=== PATIENT | male | born 1985 | race Caucasian/White ===

== ENCOUNTER 2016-10-22 16:39 | Emergency (ER) | payer OTHER ==
[~2016-10-22] VITALS: Ht 180.3 cm; Wt 67.9 kg
[~2016-10-22 16:39] MED LIST: NOHOMEMEDS
[2016-10-22 20:19] VITALS: BP 127/85
[2016-10-23] MEDS ORDERED: ADVIL,NUPRIN,M200 MG PO (14:34)
== END 2016-10-22 20:37 | disposition home or self-care (01) ==
LOC: EME 16:39
DX: T18.128A Food in esophagus causing other injury, initial encounter (principal); F17.200 Nicotine dependence, unspecified, uncomplicated
CPT/HCPCS: 99281; 99284

== ENCOUNTER 2016-10-23 11:50 | Inpatient (IN) | payer BC ==
[~2016-10-23] VITALS: Ht 180.3 cm; Wt 67.9 kg
[2016-10-23 12:45] LABS: HEMATOCRIT 37.8 % (38.0-50.0); MCH 31.7 PG (29.0-34.0); MCHC 34.1 G/DL (30.0-36.0); MCV 92.9 FL (86-99); MEAN PLAT.VOLUME 10.5 uM^3 (9.0-12.4); PLATELET COUNT 309 K/uL (156-360); RBC DIS.WIDTH-CV 13.3 % (11.8-14.6); RBC DIS.WIDTH-SD 44.9 % (39-53); RED BLOOD COUNT 4.07 M/uL (4.00-5.50); WHITE BLOOD COUNT 12.7 K/uL (4.1-10.2)
[2016-10-23 12:58] LABS: CHLORIDE 104 mEq/L (99-109); POTASSIUM 5.3 mEq/L (3.7-5.4); SODIUM 141 mEq/L (136-147)
[2016-10-23 13:00] LABS: GLUCOSE 121 mg/dL (70-99)
[2016-10-23 13:01] LABS: ANION GAP 16 MEQ/L (2-14)
[2016-10-23 13:03] LABS: GFR ESTIMATE (CALCULATED) > 59 mL/min/
[2016-10-23 13:04] LABS: UREA NITROGEN (BUN) 46 mg/dL (9-23)
[2016-10-23 13:40] LABS: TOTAL BILIRUBIN 1.2 mg/dL (0.0-1.0)
[2016-10-23 13:41] LABS: ALKALINE PHOSPHATASE 61 IU/L (3-129)
[2016-10-23 13:44] LABS: DIRECT BILIRUBIN 0.4 mg/dL (0.0-0.3)
[2016-10-23] MEDS ORDERED: ADVIL,NUPRIN,M200 MG PO (14:34)
[2016-10-23 15:31] LABS: INTER. NORMALIZED RATIO 1.2; PROTHROMBIN TIME 13.7 SEC (10.2-12.9)
[2016-10-23 15:33] LABS: PTT 31.7 SEC (25-37)
[2016-10-23 18:15] VITALS: BP 120/61
[2016-10-23 18:55] LABS: HEMATOCRIT 27.3 % (38.0-50.0); MCV 94.5 FL (86-99)
[2016-10-24] VITALS (7 sets, daily range): BP systolic 100–114; BP diastolic 55–67
[2016-10-24 00:47] LABS: HEMATOCRIT 21.5 % (38.0-50.0); MCH 30.9 PG (29.0-34.0); MCHC 33.5 G/DL (30.0-36.0); MCV 92.3 FL (86-99); RBC DIS.WIDTH-CV 13.3 % (11.8-14.6); RBC DIS.WIDTH-SD 44.6 % (39-53); WHITE BLOOD COUNT 8.5 K/uL (4.1-10.2)
[2016-10-24 02:34] LABS: MEAN PLAT.VOLUME 9.7 uM^3 (9.0-12.4)
[2016-10-24 02:51] LABS: PLATELET COUNT 198 K/uL (156-360); RED BLOOD COUNT 2.33 M/uL (4.00-5.50)
[2016-10-24 08:04] LABS: HEMATOCRIT 23.9 % (38.0-50.0); MCH 31.2 PG (29.0-34.0); MCHC 34.3 G/DL (30.0-36.0); MCV 90.9 FL (86-99); MEAN PLAT.VOLUME 10.1 uM^3 (9.0-12.4); PLATELET COUNT 188 K/uL (156-360); RBC DIS.WIDTH-CV 14.2 % (11.8-14.6); RBC DIS.WIDTH-SD 47.7 % (39-53); RED BLOOD COUNT 2.63 M/uL (4.00-5.50)
[2016-10-24 08:41] LABS: ANION GAP 7 MEQ/L (2-14); CHLORIDE 111 MEQ/L (99-109); GFR ESTIMATE (CALCULATED) > 59 mL/min/; SAMPLE HEMOLYSIS CHECK 0; SAMPLE ICTERIC CHECK 0; SAMPLE LIPEMIA CHECK 0; SODIUM 142 MEQ/L (136-147)
[2016-10-24 08:42] LABS: GLUCOSE 90 mg/dL (70-99); POTASSIUM 3.8 MEQ/L (3.7-5.4); UREA NITROGEN (BUN) 22 mg/dL (9-23)
[2016-10-24 13:01] LABS: HEMATOCRIT 27.5 % (38.0-50.0); MCH 31.8 PG (29.0-34.0); MCHC 34.2 G/DL (30.0-36.0); MCV 92.9 FL (86-99); MEAN PLAT.VOLUME 10.6 uM^3 (9.0-12.4); PLATELET COUNT 210 K/uL (156-360); RBC DIS.WIDTH-CV 14.8 % (11.8-14.6); RBC DIS.WIDTH-SD 50.2 % (39-53); RED BLOOD COUNT 2.96 M/uL (4.00-5.50)
[2016-10-24 14:43] LABS: ADD MIUA? NO; BILIRUBIN NEGATIVE; BLOOD NEGATIVE; COLOR YELLOW ((YELLOW)); GLUCOSE (STRIP) NEGATIVE; KETONES NEGATIVE; LEUKOCYTES NEGATIVE; NITRITE NEGATIVE; PROTEIN (STRIP) NEGATIVE; SPECIFIC GRAVITY 1.018 (1.000-1.030); UROBILINOGEN 0.2 MG/DL (0.2-1.0)
[2016-10-24 15:41] LABS: HEMATOCRIT 24.9 % (38.0-50.0); MCH 31.9 PG (29.0-34.0); MCHC 35.3 G/DL (30.0-36.0); MCV 90.2 FL (86-99); MEAN PLAT.VOLUME 10.1 uM^3 (9.0-12.4); PLATELET COUNT 201 K/uL (156-360); RBC DIS.WIDTH-CV 14.6 % (11.8-14.6); RED BLOOD COUNT 2.76 M/uL (4.00-5.50); WHITE BLOOD COUNT 19.8 K/uL (4.1-10.2)
[2016-10-24 15:57] LABS: ANION GAP 6 MEQ/L (2-14); CHLORIDE 108 MEQ/L (99-109); POTASSIUM 3.5 MEQ/L (3.7-5.4); SAMPLE HEMOLYSIS CHECK 0; SAMPLE ICTERIC CHECK 0; SAMPLE LIPEMIA CHECK 0; SODIUM 139 MEQ/L (136-147); TOTAL BILIRUBIN 0.6 MG/DL (0.0-1.0)
[2016-10-24 16:03] LABS: ALKALINE PHOSPHATASE 41 IU/L (3-129); GFR ESTIMATE (CALCULATED) > 59 mL/min/; GLUCOSE 94 mg/dL (70-99); UREA NITROGEN (BUN) 15 mg/dL (9-23)
[2016-10-24 16:47] LABS: EOSINOPHIL (%) 0.2 % (0-5); IMMATURE GRANULOCYTE (%) 0.5 % (0.0-0.7); IMMATURE GRANULOCYTE COUNT 0.1 K/uL; INSTRUMENT ABS NEUTROPHIL CT 17.1 K/uL; LYMPHOCYTE COUNT 1.2 K/uL (1.0-2.8); MONOCYTE (%) 5.3 % (3-12); NEUTROPHIL (%) 87.9 % (45-76); NEUTROPHIL COUNT 17.1 K/uL (1.8-6.4)
[2016-10-24 20:54] LABS: HEMATOCRIT 26.1 % (38.0-50.0); MCV 90.6 FL (86-99)
[2016-10-24 21:36] LABS: C DIFF TOXIN POSITIVE (NEGATIVE); PROBE CHECK PASS
[2016-10-25] VITALS (11 sets, daily range): BP systolic 101–122; BP diastolic 53–61
[2016-10-25 04:20] LABS: HEMATOCRIT 21.7 % (38.0-50.0); MCV 88.2 FL (86-99)
[2016-10-25 06:59] LABS: MCH 32.1 PG (29.0-34.0); MCHC 35.5 G/DL (30.0-36.0); MEAN PLAT.VOLUME 11.1 uM^3 (9.0-12.4); PLATELET COUNT 184 K/uL (156-360); RBC DIS.WIDTH-CV 14.3 % (11.8-14.6); RBC DIS.WIDTH-SD 47.1 % (39-53); WHITE BLOOD COUNT 29.8 K/uL (4.1-10.2)
[2016-10-25 08:53] LABS: BARBITUATES QUANT VALUE 0 NG/ML; BENZODIAZEPINES QUANT VALUE 0 NG/ML; BENZODIAZEPINES, URINE SCREEN Negative (200 ng/mL); PHENCYCLIDINE QUANT VALUE 0 NG/ML
[2016-10-25 10:14] LABS: HBSG INDEX 0.21
[2016-10-25 10:15] LABS: HIV INDEX 0.14; HIV-1/2 AB/AG COMBO Nonreactive; HPCA INDEX 0.06
[2016-10-25 12:58] LABS: HEMATOCRIT 23.8 % (38.0-50.0); MCV 89.1 FL (86-99)
[2016-10-26] VITALS (10 sets, daily range): BP systolic 97–125; BP diastolic 53–76
[2016-10-26 05:35] LABS: HEMATOCRIT 21.7 % (38.0-50.0); MCH 31.4 PG (29.0-34.0); MCV 89.7 FL (86-99); MEAN PLAT.VOLUME 10.6 uM^3 (9.0-12.4); PLATELET COUNT 164 K/uL (156-360); RBC DIS.WIDTH-CV 14.6 % (11.8-14.6); RBC DIS.WIDTH-SD 47.2 % (39-53); RED BLOOD COUNT 2.42 M/uL (4.00-5.50); WHITE BLOOD COUNT 13.4 K/uL (4.1-10.2)
[2016-10-26 16:57] LABS: HEMATOCRIT 30.7 % (38.0-50.0); MCV 89.2 FL (86-99)
[2016-10-27 00:30] VITALS: BP 111/56
[2016-10-27 05:23] LABS: EOSINOPHIL COUNT 0.6 K/uL (0-0.3); HEMATOCRIT 27.8 % (38.0-50.0); IMMATURE GRANULOCYTE (%) 0.3 % (0.0-0.7); LYMPHOCYTE COUNT 2.7 K/uL (1.0-2.8); MCH 30.9 PG (29.0-34.0); MCHC 34.9 G/DL (30.0-36.0); MCV 88.5 FL (86-99); MEAN PLAT.VOLUME 10.5 uM^3 (9.0-12.4); MONOCYTE (%) 7.5 % (3-12); MONOCYTE COUNT 0.7 K/uL (0-0.8); NEUTROPHIL (%) 54.7 % (45-76); PLATELET COUNT 203 K/uL (156-360); RBC DIS.WIDTH-CV 14.7 % (11.8-14.6); RBC DIS.WIDTH-SD 47.2 % (39-53); WHITE BLOOD COUNT 9.1 K/uL (4.1-10.2)
[2016-10-27 05:41] LABS: RED BLOOD COUNT 3.14 M/uL (4.00-5.50)
[2016-10-27 05:47] VITALS: BP 102/55
[2016-10-27 06:00] LABS: ANION GAP 7 MEQ/L (2-14); CHLORIDE 112 MEQ/L (99-109); GFR ESTIMATE (CALCULATED) > 59 mL/min/; GLUCOSE 86 mg/dL (70-99); POTASSIUM 3.4 MEQ/L (3.7-5.4); SAMPLE HEMOLYSIS CHECK 0; SAMPLE ICTERIC CHECK 0; SAMPLE LIPEMIA CHECK 0; SODIUM 143 MEQ/L (136-147); UREA NITROGEN (BUN) 5 mg/dL (9-23)
[2016-10-27 07:43] VITALS: BP 103/60
[2016-10-27 11:04] VITALS: BP 116/62
[2016-10-27] MEDS ORDERED: VANCOCIN HCL125 MG PO (11:23)
[2016-10-27] MEDS ORDERED: NICOTINE PATCH1 EAC2 TD (11:23)
[2016-10-27] MEDS ORDERED: SUCRALFATE1 GM/10 ML PO (11:23)
[2016-10-27] MEDS ORDERED: PROTONIX IV40 MG PO (11:25)
[2016-10-27] MEDS ORDERED: PROTONIX40 MG PO (11:28)
== END 2016-10-27 12:36 | disposition home or self-care (01) | DRG 871 ==
LOC: EME 11:50 → 4EAST 14:29 → EDOF 14:29 → ENRESERV 14:36 → EDOF 15:40 → ENRESERV 16:03 → EDOF 16:05 → 4EAST 18:03 → ENPENDDIS 10-27 → 4EAST 10-27 12:36
PROVIDERS: Internal Medicine; Internal Medicine Infectious Disease; Nurse Practitioner Adult Health; Nurse Practitioner Family; Physician Assistant; Specialist
PROC: 30233N1 Transfusion of Nonautologous Red Blood Cells into Peripheral Vein, Percutaneous Approach (ICD-10-PCS; principal; 2016-10-24)
PROC: 0DJ08ZZ Inspection of Upper Intestinal Tract, Via Natural or Artificial Opening Endoscopic (ICD-10-PCS; 2016-10-26)
DX: A41.4 Sepsis due to anaerobes (principal); K22.6 Gastro-esophageal laceration-hemorrhage syndrome; A04.7 Enterocolitis due to Clostridium difficile; R13.10 Dysphagia, unspecified; T18.128A Food in esophagus causing other injury, initial encounter; D62 Acute posthemorrhagic anemia; K22.10 Ulcer of esophagus without bleeding; T39.395A Adverse effect of other nonsteroidal anti-inflammatory drugs [NSAID], initial encounter; Z87.11 Personal history of peptic ulcer disease; R50.9 Fever, unspecified; D72.829 Elevated white blood cell count, unspecified; X58.XXXA Exposure to other specified factors, initial encounter; F17.200 Nicotine dependence, unspecified, uncomplicated; K21.9 Gastro-esophageal reflux disease without esophagitis; K44.9 Diaphragmatic hernia without obstruction or gangrene; K29.70 Gastritis, unspecified, without bleeding; M19.90 Unspecified osteoarthritis, unspecified site; F10.10 Alcohol abuse, uncomplicated; Z21 Asymptomatic human immunodeficiency virus [HIV] infection status; K20.9 Esophagitis, unspecified; K31.9 Disease of stomach and duodenum, unspecified; M25.561 Pain in right knee; R42 Dizziness and giddiness
CPT/HCPCS: 71020; 74000; 74177; 80048; 80053; 80076; 80306 90; 81003; 82272; 83605; 85014; 85018; 85025; 85027; 85610; 85730; 86703; 86803; 86900; 86901; 86920; 87040; 87340; 87493; 87506; 99281; 99284; 99285; C9113; J0696; J2250; J3010; J7042; J7050; P9016; S0030